=== PATIENT | male | born 1955 | race Hispanic/Latino ===

== ENCOUNTER → 2017-04-28 | Outpatient (CLI) | payer OTHER | END | disposition home or self-care (01) | LOC: OIH 14:11 | PROVIDERS: ATTEND Internal Medicine Cardiovascular Disease | DX: Z13.6 Encounter for screening for cardiovascular disorders (principal) | CPT/HCPCS: 75571 ==

== ENCOUNTER 2017-12-01 19:20 | Emergency (ER) | payer BC, OTHER ==
[2017-12-01] MEDS ORDERED: ASPIRIN 325 MG TABLET ONE (19:52)
[2017-12-01 20:05] LABS: BASOPHILS % (AUTO) 0.6 % (0.0-5.0); EOSINOPHILS % (AUTO) 1.6 % (0.0-8.0); HEMATOCRIT 46.8 % (42-54); LYMPHOCYTES % (AUTO) 14.7 % (21.0-51.0); MEAN CORPUSCULAR HEMOGLOBIN 31.4 pg (27.0-33.0); MEAN CORPUSCULAR HGB CONC 34.1 g/dL (32.0-36.0); MEAN CORPUSCULAR VOLUME 92.3 fL (79-99); MONOCYTES % (AUTO) 7.4 % (3.0-13.0); NEUTROPHILS % (AUTO) 75.7 % (40.0-77.0); PLATELET COUNT (AUTO) 152 K/uL (130-400); RED BLOOD CELL COUNT(AUTO) 5.07 MIL/uL (4.50-6.20); RED CELL DISTRIBUTION WIDTH 13.2 % (11.0-15.5); WHITE BLOOD COUNT (AUTO) 8.1 K/uL (4.8-10.8)
[2017-12-01 20:19] LABS: CREATININE 1.4 mg/dL (0.5-1.5); POTASSIUM 3.5 mmol/L (3.5-5.1)
[2017-12-01 20:30] LABS: INR 0.97 (0.85-1.15); PARTIAL THROMBOPLASTIN TIME 24.6 SEC (26.3-35.5); PROTHROMBIN TIME 10.2 SEC (9.6-11.6)
[2017-12-01 20:32] LABS: ALBUMIN 3.6 g/dL (3.5-5.0); BILIRUBIN,TOTAL 1.4 mg/dL (0.2-1.0)
== END 2017-12-01 20:53 | disposition home or self-care (01) ==
LOC: EDH 19:20
DX: T67.5XXA Heat exhaustion, unspecified, initial encounter (principal); E86.0 Dehydration; I10 Essential (primary) hypertension; E78.5 Hyperlipidemia, unspecified; X58.XXXA Exposure to other specified factors, initial encounter; Y93.89 Activity, other specified; Y92.098 Other place in other non-institutional residence as the place of occurrence of the external cause; Y99.8 Other external cause status
CPT/HCPCS: 36415; 71045; 80053; 82550; 83874; 84484; 85025; 85610; 85730; 93005; 94761

== ENCOUNTER 2018-02-07 20:46 | Emergency (ER) | payer BC ==
[2018-02-07] MEDS ORDERED: SODIUM CHLORIDE 0.9% 1000ML 1,000 ML IV ONE ×2 (21:18→22:22)
== END 2018-02-07 23:29 | disposition home or self-care (01) ==
LOC: EDH 20:46
DX: E86.0 Dehydration (principal); R04.0 Epistaxis; I10 Essential (primary) hypertension; E78.5 Hyperlipidemia, unspecified; Z88.6 Allergy status to analgesic agent; Z98.890 Other specified postprocedural states
CPT/HCPCS: 96360; 96361; 99284; J7030 ×2

== ENCOUNTER 2022-02-28 08:52 | Emergency (ER) | payer MEDICARE ==
[~2022-02-28] VITALS: Ht 185.4 cm; Wt 115.7 kg
[2022-02-28] MEDS ORDERED: LORAZEPAM 2 MG/ML 1 ML VIAL ONE (09:55)
[2022-02-28] MEDS ORDERED: 0.9% NACL 500ML IV.SOLN 500 ML IV ONE (10:00)
[2022-02-28 10:10] LABS: BASOPHILS % (AUTO) 0.3 % (0.0-5.0); HEMATOCRIT 49.8 % (42-54); LYMPHOCYTES % (AUTO) 25.2 % (21.0-51.0); MEAN CORPUSCULAR HEMOGLOBIN 31.1 pg (27.0-33.0); MEAN CORPUSCULAR HGB CONC 35.3 g/dL (32.0-36.0); MONOCYTES % (AUTO) 10.8 % (3.0-13.0); NEUTROPHILS % (AUTO) 63.4 % (40.0-77.0); PLATELET COUNT (AUTO) 100 K/uL (130-400); RED BLOOD CELL COUNT(AUTO) 5.66 MIL/uL (4.50-6.20); RED CELL DISTRIBUTION WIDTH 12.1 % (11.0-15.5); WHITE BLOOD COUNT (AUTO) 3.3 K/uL (4.8-10.8)
[2022-02-28] MEDS ORDERED: 0.9%NACL 1000ML IV ONE (10:10)
[2022-02-28 10:15] LABS: CREATININE 1.1 mg/dL (0.5-1.5)
[2022-02-28] MEDS ORDERED: POTASSIUM BICARB/CIT AC 25 MEQ TABLET.EFF PO ONE (10:30)
[2022-02-28] MEDS ORDERED: ONDA4TAB10 PO (12:37)
[2022-02-28 12:40] LABS: APPEARANCE,URINE CLEAR (CLEAR); BILIRUBIN,URINE NEGATIVE (NEGATIVE); COLOR,URINE LIGHT-YELLOW (YELLOW); GLUCOSE, URINE (UA) NEGATIVE (NEGATIVE); KETONES,URINE >=80 mg/dL (NEGATIVE); LEUKOCYTE ESTERASE ,URINE NEGATIVE Leu/uL (NEGATIVE); NITRATE,URINE NEGATIVE (NEGATIVE); OCCULT BLOOD,URINE NEGATIVE (NEGATIVE); PROTEIN,URINE 20 mg/dL (NEGATIVE); UROBILINOGEN,URINE 0.2 mg/dL (0.2-1.0)
[2022-02-28 12:47] LABS: MUCUS,URINE RARE LPF (None Seen); SQUAMOUS EPITHELIAL CELL,UR RARE /HPF (0-2)
[2022-02-28 12:50] VITALS: BP 158/84
[2022-03-04] MEDS ORDERED: METO-391 PO (15:55)
[2022-03-04] MEDS ORDERED: ACET325T51 PO (15:55)
[2022-03-04] MEDS ORDERED: CHLO25TA3 PO (15:55)
[2022-03-04] MEDS ORDERED: NIRM1TAB5 PO (15:55)
[2022-03-04] MEDS ORDERED: ATOR40TA71 PO (15:55)
== END 2022-02-28 12:52 | disposition home or self-care (01) ==
LOC: EDH 08:52
DX: E87.6 Hypokalemia (principal); E86.0 Dehydration; B34.9 Viral infection, unspecified; E11.9 Type 2 diabetes mellitus without complications; E78.00 Pure hypercholesterolemia, unspecified; I10 Essential (primary) hypertension; Z98.890 Other specified postprocedural states
CPT/HCPCS: 99283; 80048; 85025; 81001; 36415; J7030; J2060

== ENCOUNTER 2022-03-02 22:58 | Emergency (ER) | payer MEDICARE ==
[~2022-03-02] VITALS: Ht 185.4 cm; Wt 108.0 kg
[~2022-03-02 22:58] MED LIST: ONDA4TAB10 PO
[2022-03-03] MEDS ORDERED: SOLU-MEDROL 125MG VIAL IVP ONE (01:00)
[2022-03-03] MEDS ORDERED: DiphenhydrAMINE HCL 50 MG/ML VIAL IV ONE (01:00)
[2022-03-03 01:04] LABS: BASOPHILS % (AUTO) 0.3 % (0.0-5.0); EOSINOPHILS % (AUTO) 0.3 % (0.0-8.0); HEMATOCRIT 48.5 % (42-54); LYMPHOCYTES % (AUTO) 21.8 % (21.0-51.0); MEAN CORPUSCULAR HEMOGLOBIN 31.1 pg (27.0-33.0); MEAN CORPUSCULAR HGB CONC 36.1 g/dL (32.0-36.0); MEAN CORPUSCULAR VOLUME 86.3 fL (79-99); MONOCYTES % (AUTO) 11.1 % (3.0-13.0); NEUTROPHILS % (AUTO) 66.2 % (40.0-77.0); PLATELET COUNT (AUTO) 121 K/uL (130-400); RED BLOOD CELL COUNT(AUTO) 5.62 MIL/uL (4.50-6.20); WHITE BLOOD COUNT (AUTO) 3.8 K/uL (4.8-10.8)
[2022-03-03 01:06] LABS: POTASSIUM 3.4 mmol/L (3.5-5.1)
[2022-03-03 01:11] LABS: ALBUMIN 3.4 g/dL (3.5-5.0); TOTAL PROTEIN, SERUM 7.5 g/dL (6.0-8.3)
[2022-03-03 01:15] LABS: INR 0.99 (0.85-1.15); PROTHROMBIN TIME 10.8 SEC (9.6-11.6)
[2022-03-03 01:17] LABS: PARTIAL THROMBOPLASTIN TIME 27.9 SEC (26.3-35.5)
[2022-03-03] MEDS ORDERED: IOHEXOL 350 MG/ML 100ML INFUS..BTL IV ONE (01:22)
[2022-03-03 01:23] LABS: PLATELET MORPHOLOGY LARGE PLTS PRESENT
[2022-03-03] MEDS ORDERED: CEFTRIAXONE 1G VIAL IVP ONE (02:30)
[2022-03-03] MEDS ORDERED: IBUPROFEN 800 MG TAB PO ONE (02:30)
[2022-03-03] MEDS ORDERED: AZITHROMYCIN 250 MG TABLET PO ONE (02:30)
[2022-03-03] MEDS ORDERED: ACETAMINOPHEN 325 MG TAB PO ONE (02:30)
[2022-03-03] MEDS ORDERED: KCL 20 MEQ ERTAB PO ONE (02:30)
[2022-03-03 02:50] LABS: ABG BASE EXCESS 1.4 mmol/L (-2.0-3.0); ABG HCO3 24.6 mmol/L (21.0-28.0); ABG OXYGEN SATURATION 93.8 % (95.0-99.0); ABG PCO2 35 mmHg (35-48)
[2022-03-03] MEDS ORDERED: NIRM1TAB PO (03:10)
[2022-03-03] MEDS ORDERED: PRED20TA3 PO (03:10)
[2022-03-03] MEDS ORDERED: ALBU90AE2 IH (03:10)
[2022-03-03] MEDS ORDERED: IBUP-1493 PO (03:10)
[2022-03-03] MEDS ORDERED: ACET325C6 PO (03:11)
[2022-03-03] MEDS ORDERED: AZIT500T2 PO (03:12)
[2022-03-03 03:53] VITALS: BP 136/62
[2022-03-04] MEDS ORDERED: ATOR40TA71 PO (15:55)
[2022-03-04] MEDS ORDERED: METO-391 PO (15:55)
[2022-03-04] MEDS ORDERED: ACET325T51 PO (15:55)
[2022-03-04] MEDS ORDERED: NIRM1TAB5 PO (15:55)
[2022-03-04] MEDS ORDERED: CHLO25TA3 PO (15:55)
== END 2022-03-03 03:54 | disposition home or self-care (01) ==
LOC: EDH 22:58
DX: U07.1 COVID-19 (principal); J12.82 Pneumonia due to coronavirus disease 2019; E78.00 Pure hypercholesterolemia, unspecified; I10 Essential (primary) hypertension; Z79.52 Long term (current) use of systemic steroids; Z79.1 Long term (current) use of non-steroidal anti-inflammatories (NSAID); Z79.899 Other long term (current) drug therapy
CPT/HCPCS: 36415; 36600; 71275; 80053; 82803; 83605; 85025; 85378; 85610; 85730; 87635; 87804; 87880; 96374; 96375; C9803; J0696; J1200; J2930; Q9967